=== PATIENT | female | born 1970 | race Caucasian/White ===

== ENCOUNTER → 2024-05-20 | Outpatient (CLI) | payer MEDICAID, SELFPAY | END | disposition home or self-care (01) | PROVIDERS: PCP Internal Medicine; Referring Provider Orthopaedic Surgery Adult Reconstructive Orthopaedic Surgery; Visit Provider Orthopaedic Surgery Adult Reconstructive Orthopaedic Surgery | DX: M16.11 Unilateral primary osteoarthritis, right hip (principal) ==

== ENCOUNTER → 2024-05-24 | Outpatient (CLI) | payer MEDICAID, SELFPAY ==
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
== END | disposition home or self-care (01) ==
PROVIDERS: PCP Internal Medicine; Referring Provider Orthopaedic Surgery Adult Reconstructive Orthopaedic Surgery; Visit Provider Orthopaedic Surgery Adult Reconstructive Orthopaedic Surgery
DX: M16.11 Unilateral primary osteoarthritis, right hip (principal)
CPT/HCPCS: 73502

== ENCOUNTER 2024-06-07 14:37 | Outpatient (AMB) | payer MEDICAID, SELFPAY ==
[2024-06-07 14:46] VITALS: BP 112/75; PULSE 80; RESP 19; TEMP 36.4; O2SAT 97; BMI 28.0
--- NOTE | 2024-06-07 14:46 | RHCORTHONT_ITS ---
Vital signs 06/07/24 14:46 Height 1.68 m Height Method Stated Weight 79.038 kg Weight Measurement Method Standing Scale BMI 28.0 BP 112/75 Blood Pressure Source Automatic Cuff Blood Pressure Location Right Upper Arm Position Sitting Respiration 19 Pulse 80 Pulse Source Monitor Temp 97.5 F Temp Source Temporal Artery Scan Pulse Oximetry (%) 97 Oxygen Delivery Method Room Air Med/Allergies Allergies & Medications Allergies No Known Allergies Allergy (Verified 04/04/24 10:51) Exam Exam Patient is in no acute distress and is cooperative with the examination today. Breathing is nonlabored. In no respiratory distress. Patient has no paraspinal tenderness. Spinal deformity [cannot] be appreciated. The gait of the patient is [nonantalgic] Bilateral extremities were evaluated and demonstrates sensation intact to light touch. Palpable pedal pulses are present. No significant edema is present. Bilateral knees were examined and the patient has full strength and range of motion.. The left hip was examined. Patient was able to flex to 90 degrees, adduct to 30 degrees, abduct to 40 degrees, internally rotate to 20 degrees, and externally rotate to 20 degrees. Patient has a negative logroll. Stinchfield is negative. The patient is nontender diffusely to touch. The right hip was examined. Patient was able to flex to [90] degrees, adduct to 10 degrees, abduct to 20 degrees, internally rotate to 0 degrees, and externally rotate to 10 degrees. Patient has a positive logroll and Stinchfield Right hip x-rays were reviewed by me. This demonstrates significant shortened right hip. There is significant osteophytes and significant erosion of the right femoral head. Assessment and Plan Problem List (1) Arthritis of right hip: Status: Acute Plan: Patient is a 54-year-old male who is walking with a severe limp with severe right hip pain. She has significant right hip avascular necrosis and right hip pain. She has significant avascular porosis and erosion of the acetabulum. I would like to get a CT scan to assess the bone quality. This may require augments and frankly may require a tertiary care center. I would like to get a CT scan to see if it is possible that we can use primary components. We will see her back after CT scan is done Office Procedures GNS Level of Care Nursing/Assessment Patient Status: Established Patient Nursing Assessment/Reassesment: Medication Reconciliation, Update PMH in EMR and Vital Signs Coordination of Care: Complex Care and Chronic Disease 1-5, Education Complex Pt/Fam, Consent,records obtained, informed consent, 1 Ins Authorization, Results/Orders obtained and Staff clarify orders Established Patient Charge Established Patient Point Assignment: 110 Established Patient Point Charge: EP Level 3 (80-115) MA Intake Visit Data Collection New Patient or Established: Established Patient (seen at [facility] within 3 years) Reason for Visit:: RIGHT HIP PAIN WORSENING Seen by Clinical Staff ONLY (RN/MA): No Quality Assurance Practice Manager Required: No PCP or OBGYN visit in last 3 months: Yes Hx Now: No Do You Feel Safe at Home: Yes Authorities Contacted: N/A Questionairres Past Medical History Past Medical History Have you ever been diagnosed with any of the following: Cardiology Problems Hypertension: Yes Subjective Visit Visit for: follow up visit and hip (RIGHT) Immunization / Flu Flu Vaccine in the Last 12 Months: No Flu Vaccine Exclusion Criteria: No Exclusion Criteria History of Present Illness Chief complaint: Right hip pain Patient is a 54-year-old female with severe right hip pain and right hip avascular porosis. She was told that she has had pain for over 14 years and that the hip is out of the socket. She did have x-rays and demonstrates significant avascular porosis of the right hip with significant wear of the right hip. She reports the pain is miserable Pain Pain level (0-10): 8 Pain duration: ALL DAY Pain location: inside (medial) Pain quality: sharp, dull and aching Pain timing: night, increases with activity and stairs Associated signs & symptoms: weakness Ambulatory data Ambulatory device: none Treatments Improvement with previous injections: No Improvement with PT: No Improvement with NSAIDS: no Review of Systems Review of Systems: All systems negative unless otherwise noted in HPI.
== END 2024-06-07 15:04 | disposition home or self-care (01) ==
LOC: HODSRG 14:37
PROVIDERS: PCP Internal Medicine; Referring Provider Internal Medicine; Supervising Provider Orthopaedic Surgery Adult Reconstructive Orthopaedic Surgery; Visit Provider Orthopaedic Surgery Adult Reconstructive Orthopaedic Surgery
DX: M16.11 Unilateral primary osteoarthritis, right hip (principal); M25.551 Pain in right hip; M87.88 Other osteonecrosis, other site
CPT/HCPCS: 99213; G0463

== ENCOUNTER → 2024-07-03 | Outpatient (CLI) | payer MEDICAID, SELFPAY ==
--- NOTE | 2024-07-03 16:00 | XR_ITS ---
Examination: CT right hip without contrast. 2-D sagittal reconstructions. 2-D coronal reconstructions. 3-D reconstructions. Date and time of exam:July 03, 2024 1626 hours INDICATIONS: Right hip pain unilateral primary osteoarthritis 11 years CTDI: vol (mGy):10.3 DLP: (mGycm):304 Technique: Multiple 1.25 mm axial sections of the right hip without intravenous contrast have been obtained. 2-D sagittal and coronal reconstructions have been obtained. 3-D reconstructions have been obtained. Low dose protocols were performed. One or more of the following dose reduction techniques were used; automated exposure control, adjustment of the mA and/or KV according to patient size, use of iterative reconstruction technique. Findings: Moderate osteopenia Advanced right hip osteoarthritis, marked narrowing and subarticular sclerosis Old flattening of the right femoral head Moderate narrowing left hip joint IMPRESSION: Advanced right hip osteoarthritis
== END | disposition home or self-care (01) ==
LOC: CCTX 15:55
PROVIDERS: PCP Family Medicine; Referring Provider Orthopaedic Surgery Adult Reconstructive Orthopaedic Surgery; Visit Provider Orthopaedic Surgery Adult Reconstructive Orthopaedic Surgery
DX: M16.11 Unilateral primary osteoarthritis, right hip (principal)
CPT/HCPCS: 73700

== ENCOUNTER 2024-07-23 12:53 | Outpatient (AMB) | payer MEDICAID, SELFPAY ==
[2024-07-23 13:07] VITALS: BP 125/83; PULSE 108; RESP 20; TEMP 36.8; O2SAT 94; BMI 29.0
--- NOTE | 2024-07-23 13:07 | ORTHONT_ITS ---
Vital signs 07/23/24 13:07 Height 1.68 m Height Method Stated Weight 81.873 kg Weight Measurement Method Standing Scale BMI 29.0 BP 125/83 Blood Pressure Source Automatic Cuff Blood Pressure Location Right Upper Arm Position Sitting Respiration 20 Pulse 108 H Pulse Source Monitor Temp 98.3 F Temp Source Temporal Artery Scan Pulse Oximetry (%) 94 L Oxygen Delivery Method Room Air Med/Allergies Allergies & Medications Allergies No Known Allergies Allergy (Verified 07/23/24 13:08) Medication Reconciliation ibuprofen 800 mg tablet 800 mg PO TID PRN fever or pain #30 tabs 06/20/18 [Rx Confirmed 07/23/24] meloxicam 7.5 mg tablet 7.5 mg PO QDAY #45 tabs 06/07/24 [Rx Confirmed 07/23/24] Exam Exam Patient is in no acute distress and is cooperative with the examination today. Breathing is nonlabored. In no respiratory distress. Patient has no paraspinal tenderness. Spinal deformity [cannot] be appreciated. The gait of the patient is [nonantalgic] Bilateral extremities were evaluated and demonstrates sensation intact to light touch. Palpable pedal pulses are present. No significant edema is present. Bilateral knees were examined and the patient has full strength and range of motion.. The left hip was examined. Patient was able to flex to 90 degrees, adduct to 30 degrees, abduct to 40 degrees, internally rotate to 20 degrees, and externally rotate to 20 degrees. Patient has a negative logroll. Stinchfield is negative. The patient is nontender diffusely to touch. The right hip was examined. Patient was able to flex to [90] degrees, adduct to 10 degrees, abduct to 20 degrees, internally rotate to 0 degrees, and externally rotate to 10 degrees. Patient has a positive logroll and Stinchfield Right hip x-rays were reviewed by me. This demonstrates significant shortened right hip. There is significant osteophytes and significant erosion of the right femoral head. Assessment and Plan Problem List (1) Arthritis of right hip: Status: Acute Plan: Patient is a 54-year-old male who is walking with a severe limp with severe right hip pain. She has significant right hip avascular necrosis and right hip pain. She has significant avascular porosis and erosion of the acetabulum. I think we can do her hip replacement with primary components. We will get her hip Adarsh planned as there is significant bony erosion. Will discuss different treatment options depending on if we can use primary components or not. = Office Procedures GNS Level of Care Nursing/Assessment Patient Status: Established Patient Nursing Assessment/Reassesment: Medication Reconciliation, Update PMH in EMR and Vital Signs Coordination of Care: Complex Care and Chronic Disease 1-5, Education Complex Pt/Fam, Consent,records obtained, informed consent, Lab and Imaging orders, Results/Orders obtained and Staff clarify orders Established Patient Charge Established Patient Point Assignment: 110 Established Patient Point Charge: EP Level 3 (80-115) MA Intake Visit Data Collection New Patient or Established: Established Patient (seen at [facility] within 3 years) Reason for Visit:: F/U CT SCAN Seen by Clinical Staff ONLY (RN/MA): No Verbal consent obtained for Telemed visit?: No 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 She was told that she has had pain for over 14 years and that the hip is out of the socket. She did have x-rays and demonstrates significant avascular porosis of the right hip with significant wear of the right hip. She reports the pain is miserable Pain Pain level (0-10): 10 Pain duration: ALL DAY Pain location: groin Pain quality: sharp, dull and aching Pain timing: night, increases with activity and stairs Associated signs & symptoms: stiffness Ambulatory data Ambulatory device: none Treatments Improvement with previous injections: No Improvement with PT: No Improvement with NSAIDS: no Review of Systems Review of Systems: All systems negative unless otherwise noted in HPI.
== END 2024-07-23 13:27 | disposition home or self-care (01) ==
LOC: HODSRG 12:53
PROVIDERS: Supervising Provider Orthopaedic Surgery Adult Reconstructive Orthopaedic Surgery; Visit Provider Orthopaedic Surgery Adult Reconstructive Orthopaedic Surgery
DX: M16.11 Unilateral primary osteoarthritis, right hip (principal); M25.551 Pain in right hip; M87.88 Other osteonecrosis, other site; I10 Essential (primary) hypertension
CPT/HCPCS: 99213; G0463

== ENCOUNTER 2024-08-06 11:56 | Outpatient (AMB) | payer MEDICAID, SELFPAY ==
--- NOTE | 2024-08-06 11:36 | PD.ORTHTELE ---
Med/Allergies Allergies & Medications Allergies No Known Allergies Allergy (Verified 08/06/24 11:37) Medication Reconciliation ibuprofen 800 mg tablet 800 mg PO TID PRN fever or pain #30 tabs 06/20/18 [Rx Confirmed 08/06/24] meloxicam 7.5 mg tablet 7.5 mg PO QDAY #45 tabs 06/07/24 [Rx Confirmed 08/06/24] Subjective Visit Visit for: follow up visit and hip Immunization / Flu Flu Vaccine in the Last 12 Months: No Flu Vaccine Exclusion Criteria: No Exclusion Criteria History of Present Illness Chief complaint: F/U ON HIP ADARSH PLAN Gwen is a 54-year-old female with severe right hip avascular porosis versus arthritis. There is significant bony erosion. Pain is affecting her quality life and happiness Pain Pain level (0-10): 10 Ambulatory data Ambulatory device: none Treatments Improvement with previous injections: No Improvement with PT: No Improvement with NSAIDS: no Review of Systems Review of Systems: All systems negative unless otherwise noted in HPI. Assessment and Plan Problem List (1) Arthritis of right hip: Status: Acute Plan: Patient is a 54-year-old male who is walking with a severe limp with severe right hip pain. She has significant right hip avascular necrosis and right hip pain. She has significant avascular porosis and erosion of the acetabulum. I think we can do her hip replacement with primary components. We will get her hip Adarsh planned as there is significant bony erosion. Will discuss different treatment options depending on if we can use primary components or not. = Office Procedures GNS Level of Care Nursing/Assessment Patient Status: Established Patient Nursing Assessment/Reassesment: Medication Reconciliation, Update PMH in EMR and Vital Signs Coordination of Care: Complex Care and Chronic Disease 1-5, Education Complex Pt/Fam, Consent,records obtained, informed consent, Results/Orders obtained and Staff clarify orders Established Patient Charge Established Patient Point Assignment: 95 Telehealth Telemed Phone/Video with patient at home & Dr,PA,CURTAIN [employer] BLINDSTITCH: Yes
== END 2024-08-06 13:05 | disposition home or self-care (01) ==
LOC: HODSRG 11:56
PROVIDERS: Supervising Provider Orthopaedic Surgery Adult Reconstructive Orthopaedic Surgery; Visit Provider Orthopaedic Surgery Adult Reconstructive Orthopaedic Surgery
DX: M16.11 Unilateral primary osteoarthritis, right hip (principal); M25.551 Pain in right hip; M87.88 Other osteonecrosis, other site
CPT/HCPCS: 99212; G0463